=== PATIENT | female | born 1940 | race Caucasian/White ===

== ENCOUNTER 2017-01-21 09:05 | Day surgery (SDC) | payer OTHER ==
[~2017-01-21] VITALS: Ht 157.5 cm; Wt 71.7 kg
[~2017-01-21 09:05] MED LIST: AMBIEN5 MG PO; BREO ELLIPTA I1 EACH IH; BUPROPION HCL150 M2 PO; BUPROPION HCL200 M1 PO; CALCIUM + D3 E1 EACH PO; CYMBALTA20 MG PO; FIORICET 50-301 EACH PO; KLONOPIN0.5 M1 PO; MAXZIDE 37.5 M1 EACH PO; MIRALAX17 GM PO; NEURONTIN100 MG PO; PERCOCET 7.51 TABLET PO; PRAVACHOL40 MG PO; SEROPHENE50 MG PO; SEROQUEL50 MG PO; SPIRIVA RESPIMAT4 GM IH; SYNTHROID50 MCG PO; VITAMIN D2000 UNIT PO
== END 2017-01-21 12:07 | disposition home or self-care (01) ==
LOC: PAIN 09:05 → SDC 09:45 → PAIN 09:45
PROC: 015B3ZZ Destruction of Lumbar Nerve, Percutaneous Approach (ICD-10-PCS; principal; 2017-01-21)
DX: M47.816 Spondylosis without myelopathy or radiculopathy, lumbar region (principal); F41.9 Anxiety disorder, unspecified; M51.36 Other intervertebral disc degeneration, lumbar region; M41.9 Scoliosis, unspecified; Z87.891 Personal history of nicotine dependence; I10 Essential (primary) hypertension; J44.9 Chronic obstructive pulmonary disease, unspecified; Z98.1 Arthrodesis status; M54.2 Cervicalgia; M54.5 Low back pain; Z88.5 Allergy status to narcotic agent; Z88.6 Allergy status to analgesic agent; Z88.8 Allergy status to other drugs, medicaments and biological substances
CPT/HCPCS: J1030; J3010; S0020

== ENCOUNTER 2017-03-17 10:21 | Day surgery (SDC) | payer OTHER ==
[~2017-03-17] VITALS: Ht 157.5 cm; Wt 74.8 kg
== END 2017-03-17 11:48 | disposition home or self-care (01) ==
LOC: PAIN 10:21 → SDC 11:00 → PAIN 11:00
DX: M46.1 Sacroiliitis, not elsewhere classified (principal); M53.3 Sacrococcygeal disorders, not elsewhere classified; M51.36 Other intervertebral disc degeneration, lumbar region; S39.92XS Unspecified injury of lower back, sequela; M48.00 Spinal stenosis, site unspecified; K21.9 Gastro-esophageal reflux disease without esophagitis; I10 Essential (primary) hypertension; M41.9 Scoliosis, unspecified; J44.9 Chronic obstructive pulmonary disease, unspecified; F41.9 Anxiety disorder, unspecified; Z87.891 Personal history of nicotine dependence; Z95.5 Presence of coronary angioplasty implant and graft; Z79.891 Long term (current) use of opiate analgesic; Z79.899 Other long term (current) drug therapy
CPT/HCPCS: J1030; J3010; S0020

== ENCOUNTER 2017-09-12 09:22 | Day surgery (SDC) | payer OTHER ==
[~2017-09-12] VITALS: Ht 157.5 cm; Wt 72.7 kg
[~2017-09-12 09:22] MED LIST changes: -BUPROPION HCL150 M2 PO; +MIGRANAL1 ML BOTH NARES; -NEURONTIN100 MG PO; +NEURONTIN300 MG PO; -SYNTHROID50 MCG PO; +SYNTHROID75 MCG PO; +WOMEN'S 50 PLU1 EACH PO; +ZOFRAN8 MG PO
== END 2017-09-12 11:42 | disposition home or self-care (01) ==
LOC: PAIN 09:22 → SDC 10:00 → PAIN 10:00
DX: M47.816 Spondylosis without myelopathy or radiculopathy, lumbar region (principal); M54.5 Low back pain; G89.29 Other chronic pain; M48.061 Spinal stenosis, lumbar region without neurogenic claudication; M51.36 Other intervertebral disc degeneration, lumbar region; I10 Essential (primary) hypertension; E03.9 Hypothyroidism, unspecified; K21.9 Gastro-esophageal reflux disease without esophagitis; J44.9 Chronic obstructive pulmonary disease, unspecified; Z87.891 Personal history of nicotine dependence; Z79.891 Long term (current) use of opiate analgesic; Z95.5 Presence of coronary angioplasty implant and graft
CPT/HCPCS: J1030; J2250; J3010; S0020

== ENCOUNTER 2018-01-12 12:23 | Day surgery (SDC) | payer OTHER ==
[~2018-01-12] VITALS: Ht 157.5 cm; Wt 75.3 kg
[~2018-01-12 12:23] MED LIST changes: +NEURONTIN100 MG PO; -NEURONTIN300 MG PO; +PRESERVISION T1 EACH PO; +WELLBUTRIN100 MG PO
== END 2018-01-12 14:43 | disposition home or self-care (01) ==
LOC: PAIN 12:23 → SDC 13:00 → PAIN 14:43
DX: M47.816 Spondylosis without myelopathy or radiculopathy, lumbar region (principal); M51.36 Other intervertebral disc degeneration, lumbar region; M46.1 Sacroiliitis, not elsewhere classified; M41.9 Scoliosis, unspecified; I10 Essential (primary) hypertension; F41.9 Anxiety disorder, unspecified; J44.9 Chronic obstructive pulmonary disease, unspecified; K21.9 Gastro-esophageal reflux disease without esophagitis; E03.9 Hypothyroidism, unspecified; Z87.891 Personal history of nicotine dependence
CPT/HCPCS: J1030; J2250; S0020